=== PATIENT | female | born 1980 | race African-American/Black ===

== ENCOUNTER 2023-12-07 23:06 | Emergency (ER) | payer BC ==
[2023-12-08 00:13] LABS: Influenza A by NAA Not Detected (NotDetected); Influenza B by NAA Not Detected (NotDetected); SARS-CoV-2 NAA Rapid Test DETECTED (NotDetected)
== END 2023-12-07 23:50 | disposition home or self-care (01) ==
LOC: CSHERS 23:06
DX: J06.9 Acute upper respiratory infection, unspecified (principal); F17.210 Nicotine dependence, cigarettes, uncomplicated
CPT/HCPCS: 87081; 87430; 99283